=== PATIENT | male | born 1980 | race African-American/Black ===

== ENCOUNTER 2018-07-04 11:28 | Emergency (ER) | payer SELFPAY ==
[~2018-07-04] VITALS: Ht 167.6 cm; Wt 81.6 kg
--- NOTE | 2018-07-04 11:56 | ED Cough/URI ---
General Chief Complaint: Cough/Cold/Flu Symptoms Stated Complaint: GILL/COUGH/SINUSES Source: patient Exam Limitations: no limitations History of Present Illness Date Seen by Provider: Jul 04, 2018 Time Seen by Provider: 11:50 Initial Comments Patient is a 38-year-old male who presents to the emergency room with complaints of cough/cold, chest tightness, sinus pressure\\pain for 4 days. He states that this all started 4 days ago when he was mowing the yard, he does not know if it was allergies that started it but does report body aches, cough, sinus drainage, thinks he has been running a fever but denies taking his temperature at home. Denies any shortness of breath, dizziness, nausea, vomiting. Timing/Duration: other (4 days) Severity/Quality: mild, dry cough Prior Episodes/Possible Cause: allergen exposure Associated Symptoms: cough, fever/chills, nasal congestion, nasal drainage, sinus infection Allergies and Home Medications Allergies Coded Allergies: No Known Drug Allergies (Unverified , 07/04/18) Home Medications Amoxicillin/Potassium Clav 1 Each Tablet, 1 EACH PO BID Prescribed by: LALITA LUBIN on 07/04/18 1316 Benzonatate 100 Mg Capsule, 100 MG PO PRN PRN for COUGH 1 cap every 8 hours. Prescribed by: LALITA LUBIN on 07/04/18 1316 Prednisone 10 Mg Tab.ds.pk, 10 MG PO UD Prescribed by: LALITA LUBIN on 07/04/18 1316 Patient Home Medication List Home Medication List Reviewed: Yes Review of Systems Constitutional: see HPI, chills, fever EENTM: see HPI, nose congestion Respiratory: see HPI, cough Cardiovascular: see HPI, other Musculoskeletal: see HPI, muscle pain All Other Systems Reviewed Negative Unless Noted: Yes Past Sacejmk-Alctor-Mfzkhe Hx Past Med/Social Hx: Reviewed Nursing Past Med/Soc Hx Patient Social History Recent Foreign Travel: No Contact w/Someone Who Travel: No Family Medical History Reviewed Nursing Family Hx Physical Exam Vital Signs - First Documented 07/04/18 07/04/18 11:53 14:05 Temp 98.8 Pulse 89 Resp 20 B/P (MAP) 125/87 (100) Pulse Ox 97 O2 Delivery Room Air Capillary Refill : Height: '" Weight: lbs. oz. kg; BMI Method: General Appearance: WD/WN, no apparent distress HEENT: PERRL/EOMI, normal ENT inspection, TMs normal, pharynx normal Respiratory: chest non-tender, lungs clear, normal breath sounds, no respiratory distress, no accessory muscle use Cardiovascular: regular rate, rhythm, no edema, no gallop, no JVD, no murmur Extremities: normal range of motion, non-tender, normal inspection, no pedal edema, no calf tenderness, normal capillary refill Neurologic/Psychiatric: alert, normal mood/affect, oriented x 3 Skin: normal color, warm/dry Lymphatic: no adenopathy Progress/Results/Core Measures Suspected Sepsis SIRS Temperature: Pulse: Respiratory Rate: Laboratory Tests 07/04/18 12:10: White Blood Count 6.5 Blood Pressure / Mean: Laboratory Tests 07/04/18 12:10: Creatinine 0.88, Platelet Count 325, Total Bilirubin 1.1H Results/Orders Lab Results Laboratory Tests Test 07/04/18 12:10 Range/Units White Blood Count 6.5 4.3-11.0 10^3/uL Red Blood Count 4.56 4.35-5.85 10^6/uL Hemoglobin 14.7 13.3-17.7 G/DL Hematocrit 42 40-54 % Mean Corpuscular Volume 93 80-99 FL Mean Corpuscular Hemoglobin 32 25-34 PG Mean Corpuscular Hemoglobin Concent 35 32-36 G/DL Red Cell Distribution Width 12.7 10.0-14.5 % Platelet Count 325 130-400 10^3/uL Mean Platelet Volume 9.8 7.4-10.4 FL Neutrophils (%) (Auto) 70 42-75 % Lymphocytes (%) (Auto) 16 12-44 % Monocytes (%) (Auto) 10 0-12 % Eosinophils (%) (Auto) 3 0-10 % Basophils (%) (Auto) 0 0-10 % Neutrophils # (Auto) 4.5 1.8-7.8 X 10^3 Lymphocytes # (Auto) 1.1 1.0-4.0 X 10^3 Monocytes # (Auto) 0.7 0.0-1.0 X 10^3 Eosinophils # (Auto) 0.2 0.0-0.3 10^3/uL Basophils # (Auto) 0.0 0.0-0.1 10^3/uL D-Dimer < 0.22 0.00-0.49 UG/ML Sodium Level 140 135-145 MMOL/L Potassium Level 4.0 3.6-5.0 MMOL/L Chloride Level 107 98-107 MMOL/L Carbon Dioxide Level 25 21-32 MMOL/L Anion Gap 8 5-14 MMOL/L Blood Urea Nitrogen 8 7-18 MG/DL Creatinine 0.88 0.60-1.30 MG/DL Estimat Glomerular Filtration Rate > 60 BUN/Creatinine Ratio 9 Glucose Level 100 70-105 MG/DL Calcium Level 9.6 8.5-10.1 MG/DL Corrected Calcium 9.4 8.5-10.1 MG/DL Magnesium Level 2.2 1.8-2.4 MG/DL Total Bilirubin 1.1 H 0.1-1.0 MG/DL Aspartate Amino Transf (AST/SGOT) 23 5-34 U/L Alanine Aminotransferase (ALT/SGPT) 18 0-55 U/L Alkaline Phosphatase 50 40-136 U/L Myoglobin 44.6 10.0-92.0 NG/ML Troponin I < 0.30 <0.30 NG/ML Total Protein 7.4 6.4-8.2 GM/DL Albumin 4.3 3.2-4.5 GM/DL My Orders Orders - BERNOT,LALITA Cbc With Automated Diff (07/04/18 11:59) Magnesium (07/04/18 11:59) Chest 1 View, Ap/Pa Only (07/04/18 11:59) Ekg Tracing (07/04/18 11:59) Cardiac Profile 1 (07/04/18 11:59) Comprehensive Metabolic Panel (07/04/18 11:59) Myoglobin Serum (07/04/18 11:59) O2 (07/04/18 11:59) Monitor-Rhythm Ecg Trace Only (07/04/18 11:59) Saline Lock/Iv-Start (07/04/18 11:59) Fibrin Degradation Products (07/04/18 11:59) Vital Signs/I&O 07/04/18 07/04/18 07/04/18 11:53 12:03 14:05 Temp 98.8 98.8 Pulse 89 93 Resp 20 20 B/P (MAP) 125/87 (100) 114/79 (100) Pulse Ox 97 O2 Delivery Room Air Room Air Room Air Capillary Refill : Progress Note : Progress Note I have seen and evaluated the patient. I have informed him of laboratory findings, EKG, and imaging studies. With the chest tightness going on for a few days I believe that if it was cardiac related his troponin would be elevated. I have informed him with the plan of care, plans for discharge, and return precautions given. ECG EKG : EKG Time: 11:49 Rate: 89 Rhythm: Normal Sinus Intervals: Normal ECG Comparisson: No Previous ECG Available ECG Impression: Normal Comment Dr. Jensen agrees with above finding. Diagnostic Imaging Diagonstic Imaging: Xray Plain Films/CT/US/NM/MRI: chest Comments NAME: MAXIMILIAN [facility] REC#: [id number] PT STATUS: REG ER : 1980 PHYSICIAN: LALITA LUBIN ADMIT DATE: 07/04/18/ER Draft Date of Exam:07/04/18 CHEST 1 VIEW, AP/PA ONLY INDICATION: Cough and congestion with chest pain. TIME OF EXAM: 12:28 p.m. No prior studies are available for comparison. The heart size is normal. The pulmonary vascularity is unremarkable. The lungs are clear. No infiltrate, effusion or pneumothorax is detected. IMPRESSION: No acute cardiopulmonary process is detected. Dictated on workstation # [id number] Dict: 07/04/18 1246 Trans: 07/04/18 1251 [facility] [id number] Interpreted by: GERMAN STOVALL MD Electronically signed by: Departure Impression Primary Impression: Upper respiratory infection Additional Impression: Sinus infection Disposition: 01 HOME, SELF-CARE Condition: Stable/Unchanged Departure-Patient Inst. Decision time for Depature: 13:10 Referrals: NO,LOCAL PHYSICIAN (PCP) Primary Care Physician Patient Instructions: Acute Bronchitis, Adult (DC), Sinusitis, Adult (DC) Add. Discharge Instructions: Take medication as directed. Follow-up with a primary care provider within 1 week for recheck. He may use [id number] cough suppressants, Tylenol and ibuprofen as directed by the bottle for pain and fever, you may also use Afrin as directed by the bottle for additional congestion relief. Return back to the emergency room for any worsening symptoms or any other concerns as needed. All discharge instructions reviewed with patient and/or family. Voiced understanding. Scripts Benzonatate (Tessalon Perle) 100 Mg Capsule 100 MG PO PRN PRN for COUGH, #14 CAP 1 cap every 8 hours. Prov: LALITA LUBIN 07/04/18 Prednisone (Prednisone) 10 Mg Tab.ds.pk 10 MG PO UD, #1 PKG Prov: LALITA LUBIN 07/04/18 Amoxicillin/Potassium Clav (Augmentin 875-125 Tablet) 1 Each Tablet 1 EACH PO BID for 7 Days, #14 TAB Prov: LALITA LUBIN 07/04/18 LALITA LUBIN Jul 04, 2018 11:56
[2018-07-04 12:22] LABS: BASOPHILS % (AUTO) 0 % (0-10); EOSINOPHILS # (AUTO) 0.2 10^3/uL (0.0-0.3); EOSINOPHILS % (AUTO) 3 % (0-10); HEMATOCRIT 42 % (40-54); HEMOGLOBIN 14.7 G/DL (13.3-17.7); LYMPHOCYTES # (AUTO) 1.1 X 10^3 (1.0-4.0); LYMPHOCYTES % (AUTO) 16 % (12-44); MEAN CORPUSCULAR HEMOGLOBIN 32 PG (25-34); MEAN CORPUSCULAR HGB CONC 35 G/DL (32-36); MEAN CORPUSCULAR VOLUME 93 FL (80-99); MEAN PLATELET VOLUME 9.8 FL (7.4-10.4); MONOCYTES # (AUTO) 0.7 X 10^3 (0.0-1.0); MONOCYTES % (AUTO) 10 % (0-12); NEUTROPHILS # (AUTO) 4.5 X 10^3 (1.8-7.8); NEUTROPHILS % (AUTO) 70 % (42-75); PLATELET COUNT 325 10^3/uL (130-400); RED BLOOD COUNT 4.56 10^6/uL (4.35-5.85); RED CELL DISTRIBUTION WIDTH 12.7 % (10.0-14.5); WHITE BLOOD COUNT 6.5 10^3/uL (4.3-11.0)
[2018-07-04 12:41] LABS: ALANINE AMINOTRANSFERASE 18 U/L (0-55); ALBUMIN 4.3 GM/DL (3.2-4.5); ALKALINE PHOSPHATASE 50 U/L (40-136); BILIRUBIN,TOTAL 1.1 MG/DL (0.1-1.0); BUN/CREATININE RATIO 9; CALCIUM 9.6 MG/DL (8.5-10.1); CARBON DIOXIDE 25 MMOL/L (21-32); CHLORIDE 107 MMOL/L (98-107); CREATININE SERUM 0.88 MG/DL (0.60-1.30); GFR ESTIMATED > 60; GLUCOSE 100 MG/DL (70-105); MAGNESIUM 2.2 MG/DL (1.8-2.4); SODIUM 140 MMOL/L (135-145); TOTAL PROTEIN 7.4 GM/DL (6.4-8.2)
[2018-07-04 12:49] LABS: MYOGLOBIN SERUM 44.6 NG/ML (10.0-92.0)
--- NOTE | 2018-07-04 12:51 | Diagnostic Imaging Report ---
INDICATION: Cough and congestion with chest pain. TIME OF EXAM: 12:28 p.m. No prior studies are available for comparison. The heart size is normal. The pulmonary vascularity is unremarkable. The lungs are clear. No infiltrate, effusion or pneumothorax is detected. IMPRESSION: No acute cardiopulmonary process is detected. Dictated by: Dictated on workstation # [id number]
[2018-07-04] MEDS ORDERED: BENZ-13 PO (13:16)
[2018-07-04] MEDS ORDERED: PRED10TA22 PO (13:16)
[2018-07-04] MEDS ORDERED: AMOX-358 PO (13:16)
[2018-07-04 14:05] VITALS: BP 114/79
== END 2018-07-04 14:05 | disposition home or self-care (01) ==
LOC: ER 11:32
DX: J06.9 Acute upper respiratory infection, unspecified (principal); J32.9 Chronic sinusitis, unspecified; Z79.52 Long term (current) use of systemic steroids
CPT/HCPCS: 36415; 71045; 80053; 83735; 83874; 84484; 85025; 85379; 93005; 93041